=== PATIENT | male | born 1970 | race Caucasian/White ===

== ENCOUNTER 2017-12-08 12:08 | Emergency (ER) | payer OTHER ==
[~2017-12-08] VITALS: Ht 167.6 cm; Wt 69.4 kg
[~2017-12-08 12:08] MED LIST: AUGMENTIN 875-1 EACH PO; AUGMENTIN 875875 MG PO; BENZONATATE200 M1 PO; CENTRUM1 TA1 PO; NASONEX17 GM NASB; ZOFRAN ODT4 M1 PO; ZOFRAN4 M1 PO
--- NOTE | 2017-12-08 14:50 | ED GENERAL ADULT ---
History of Present Illness General Chief Complaint: Fall Stated Complaint: "I BROKE A BUNCH OF RIBS, I FELL" Source: patient Exam Limitations: no limitations Vital Signs & Intake/Output Vital Signs & Intake/Output Vital Signs Date Time Temp Pulse Resp B/P B/P Pulse O2 O2 Flow FiO2 Mean Ox Delivery Rate 12/08 1720 98.6 73 18 140/83 96 Room Air 12/08 1330 99.0 74 12 138/88 94 Room Air Allergies Coded Allergies: NO KNOWN ALLERGIES (UNKNOWN 08/07/17) Reconcile Medications Ibuprofen 800 MG TABLET 1 TAB PO TID PRN PAIN Oxycodone HCl/Acetaminophen (Percocet 5-325 MG Tablet) 5 MG-325 MG TABLET 1 TAB PO 4 TIMES/DAY PRN SEVERE PAIN Triage Note: PT FALL DOWN FLIGHT OF STAIRS, "I FEEL LIKE I BROKE MY RIBS" HAVING TROUBLE BREATHING. FELL OF A SCAFOLING. 06/05 PT ALSO C/O BACK PAIN PT STATES IT IS MORE COMFORTABLE FOR ME TO STAND Triage Nurses Notes Reviewed? yes Onset: Abrupt Duration: hour(s): (1), constant, continues in ED, getting worse Timing: single episode today Injury Environment: home Severity: moderate, severe Severity Numbers: 10 No Modifying Factors: none HPI: 47-year-old male past medical history of alcohol dependence presents for evaluation after a fall. Patient was at his house working on a scaffold when he tripped and fell about 4 feet landing on his left flank. He reports pain in his left ribs. The pain is worse with movement touching the area or breathing. The pain radiates to his back. He did not take any medicine for the pain. He rates pain as a 10 out of 10. He denies any head strike or loss of consciousness. He is able to get up and walk after the fall. He denies any pain in his extremities chest pain shortness of breath or abdominal pain. No blood thinners. Past History Travel History Traveled to [place] past 21 day No Medical History Any Pertinent Medical History? see below for history Neurological: NONE EENT: NONE Cardiovascular: NONE Respiratory: NONE Gastrointestinal: GERD, DIVERTICULOSIS Hepatic: NONE Renal: one kidney incidentally seen on CT today Musculoskeletal: HAS AN EXTRA RIB Psychiatric: alcohol dependence Endocrine: NONE Blood Disorders: NONE Cancer(s): NONE HOSTESS/Reproductive: NONE Other Medical Hx: cigarette smoker History of MRSA: No History of VRE: No History of CDIFF: No Surgical History Surgical History: NONE Psychosocial History Who do you live with Significant Other Services at Home None What is your primary language Vietnamese Tobacco Use: Current Daily Use Daily Tobacco Use Amount/Type: => 5 Cigarettes daily Family History Family History, If Any: MOTHER, , Age 60+; Cause: Primary cancer of unknown site and cell type. FATHER, , Age 60+; Cause: Cancer of unknown origin. Relation not specified for: *No pertinent family history Hx Contributory? No Review of Systems Review of Systems Constitutional: Reports: no symptoms. EENTM: Reports: no symptoms. Respiratory: Reports: no symptoms. Cardiovascular: Reports: no symptoms. GI: Reports: no symptoms. Genitourinary: Reports: no symptoms. Musculoskeletal: Reports: see HPI, back pain, muscle pain, muscle stiffness. Skin: Reports: no symptoms. Neurological/Psychological: Reports: no symptoms. Hematologic/Endocrine: Reports: no symptoms. Immunologic/Allergic: Reports: no symptoms. All Other Systems: Reviewed and Negative Physical Exam Physical Exam General Appearance: well developed/nourished, no apparent distress, alert, awake Head: atraumatic, normal appearance Eyes: Bilateral: normal appearance, PERRL, EOMI. Ears, Nose, Throat: normal pharynx, normal ENT inspection, hearing grossly normal Neck: normal inspection, supple, full range of motion Respiratory: normal breath sounds, no respiratory distress, lungs clear, left lateral ribs from the eighth 12 are tender to palpation with superficial abrasions on the left flank and left lateral ribs Cardiovascular: regular rate/rhythm, normal peripheral pulses Peripheral Pulses: 2+ radial (R), 2+ radial (L) Gastrointestinal: normal bowel sounds, soft, no organomegaly, tenderness (left upper quadrant) Back: normal inspection, normal range of motion, no vertebral tenderness Extremities: normal inspection, normal range of motion, no edema Neurologic/Psych: no motor/sensory deficits, awake, alert, oriented x 3, normal gait Skin: intact, normal color, warm/dry, superficial abrasions to the bilateral forearms bilateral knees Lymphatic: no anterior cervical jose Core Measures ACS in differential dx? No CVA/TIA Diagnosis: No Sepsis Present: No Sepsis Focused Exam Completed? No Progress Differential Diagnoses I considered the following diagnoses in my evaluation of the patient: [Rib fractures, pulmonary contusion, splenic laceration, liver laceration, vertebral fracture, contusion, abrasion] Plan of Care: Orders Procedure Date/time Status CT CHEST W IV CONTRAST 12/[address] ABD & PELVIS W IV CONTRAST 12/08 1326 Active Current Medications Sig/Eric Start time Last Medication Dose Stop Time Status Admin Oxycodone/ 1 TAB ONCE ONE 12/08 1615 UNVr Acetaminophen 12/08 1616 (Percocet) Patient seen and evaluated. He is reporting severe left rib/flank/left upper quadrant pain after a fall. He denies any head strike no blood thinners. A CT scan of the head neck chest abdomen and pelvis was obtained. We'll check CT scans with contrast to get a better view of the spleen. Patient medicated with morphine initially and then dilaudid with some improvement. CT scan show evidence of left 10 11 and 12th rib fractures. No pulmonary contusion. No hypoxia. No underlying lung disease. No other acute trauma. Reviewed results with patient. Patient is feeling somewhat better. He was able to get up and ambulate in the emergency department. He'll be given an incentive spirometer Percocet ibuprofen for pain control. Rest apply ice avoid excessive physical activity follow-up with a primary care doctor in a few days for recheck. Discussed return precautions in detail. Patient agrees the plan. Case discussed with Dr. Kan he agrees. Diagnostic Imaging: Viewed by Me: CT Scan. Discussed w/RAD: CT Scan. Radiology Impression: PATIENT: VALDEZ VERAS PRESENT AGE: 47 PATIENT ACCOUNT NO: [id number] : 70 LOCATION: [facility] ORDERING PHYSICIAN: Duarte KRISHNAMURTHY SERVICE DATE: 12/08/17 EXAM TYPE: CAT - CT CERV SPINE WO IV CONTRAST; CT HEAD WO IV CONTRAST EXAMINATION: CT HEAD WITHOUT CONTRAST CT CERVICAL SPINE WITHOUT CONTRAST CLINICAL INFORMATION: Trauma. Fell downstairs. COMPARISON: None. TECHNIQUE: Imaging was performed from the skull base to vertex without intravenous administration of contrast. In addition, helical noncontrast CT imaging was acquired through the cervical spine and source images were reviewed along with axial reconstructions and sagittal and coronal MPRs. DLP: 1005.04 mGy-cm FINDINGS: HEAD: No intracranial mass, hemorrhage, or midline shift is visualized. The ventricles and sulci are age- appropriate. No extra-axial collections are identified. The paranasal sinuses and mastoid air cells are well aerated. CERVICAL SPINE: There is no evidence of acute cervical spine fracture. Vertebral bodies remain normal in height. Cervical vertebrae have normal alignment. There is mild disc height narrowing with posterior endplate spurs at C6-C7 disc level. No pre- or paravertebral soft tissue abnormality is identified. Limited assessment of the lung apices is unremarkable. IMPRESSION: 1. No acute intracranial pathology. 2. No CT evidence of acute cervical spine fracture or traumatic subluxation DICTATED BY: Jimy Yanez MD DATE/TIME DICTATED:12/08/171524 CAMPUS ADMINISTRATIVE ASSISTANT:JASIEL DATE/TIME TRANSCRIBED:12/08/171524 CONFIDENTIAL, DO NOT COPY WITHOUT APPROPRIATE AUTHORIZATION. <Electronically signed in Other Vendor System> SIGNED BY: Jimy Yanez MD 12/08/171534, PATIENT: VALDEZ VERAS PRESENT AGE: 47 PATIENT ACCOUNT NO: [id number] : 70 LOCATION: [facility] ORDERING PHYSICIAN: Duarte KRISHNAMURTHY SERVICE DATE: 12/08/17 EXAM TYPE: CAT - CT ABD & PELVIS W IV CONTRAST; CT CHEST W IV CONTRAST EXAMINATION: CT CHEST, ABDOMEN AND PELVIS WITH CONTRAST CLINICAL INFORMATION: Fell downstairs. COMPARISON: CT abdomen and pelvis 08/07/2017, 02/24/2015. TECHNIQUE: Multidetector volumetric CT imaging of the chest, abdomen and pelvis was obtained after the administration of 95 mL of intravenous Optiray 320 without immediate adverse reactions. Coronal and sagittal reformatted images are performed at the CT scanner. DLP: 405.15 mGy-cm. FINDINGS: CT CHEST: Lungs: There is ground-glass opacity in the subpleural lung at the right lung base, could be related to atelectasis. There is a small amount of mucus in the trachea at the todd and the right mainstem bronchus. Mediastinum: The mediastinum is normal. Pleura: There is no pleural effusion. No pleural mass or thickening. Axilla: No lymphadenopathy. CT ABDOMEN AND PELVIS: Liver, Gallbladder, and Biliary Tree: There is a 1 cm mildly enhancing nodule at the inferior tip of the right lobe of the liver, axial image 62 (2). This is unchanged since CAT scan . There is a 2 mm hypodensity at the dome right lobe of liver image 336 (4), and there is a 5 mm hypodensity at the anterior right lobe of liver sagittal image 76. Both of these hypodense lesions are unchanged since CAT scan of 02/24/2015. There is no intrahepatic bile duct dilatation. There are 2 separate punctate calcifications associated with the wall of the gallbladder unchanged since prior CAT scan 08/07/2017. No gallbladder wall thickening or edema around the gallbladder. There is no bile duct dilatation. Pancreas: No acute change of the pancreas. No mass. No pancreatic duct dilatation. Spleen: Spleen normal in size and contour. No focal lesion. Adrenal Glands: Adrenal glands are normal in size. No focal mass. Kidneys and Ureters: The left kidney is absent. Right kidney is normal with no evidence of hydronephrosis. Bladder: Unremarkable. Gastrointestinal Tract: There is diverticulosis of colon. There is no acute change of the bowel. No bowel obstruction. No bowel wall thickening or edema. Moderate volume of stool in the colon. The appendix is normal. The small- bowel loops are normal. Mesentery: No focal inflammation. No free fluid. No free air. Abdominal Wall: No significant hernia is appreciated. Lymph Nodes: Normal. Vascular: Unremarkable. Pelvic Viscera: Prostate is prominent measuring 5 cm transverse. There are coarse calcifications within the prostate. Osseous Structures: There is fracture of the posterior left 12th, 11th and 10th ribs. There is mild degenerative lipping at the anterior endplates of the lower thoracic, upper lumbar vertebrae and mild degenerative change of the facet joints of the lower lumbar spine from degenerative disc disease. IMPRESSION: 1. Fracture of the posterior 10th through 12th left ribs. No pneumothorax or acute change of lung. Normal spleen. 2. Ground-glass opacity subpleural lung at the right lung base likely dependent atelectasis. 3. Two tiny punctate calcifications associated with the wall of the gallbladder unchanged since prior CT study. No edema of the gallbladder wall or bile duct dilatation. 4. There are several lesions in the liver. These are all stable since CAT scan 02/24/2015 consistent with benign finding. 5. Absent left kidney. Normal right kidney. 6. Mild diverticulosis of colon without acute change of the bowel. 7. Enlarged prostate with coarse calcifications in the prostate. DICTATED BY: Jimy Yanez MD DATE/TIME DICTATED:04/14/18 / 1532 CAMPUS ADMINISTRATIVE ASSISTANT:JASIEL DATE/TIME TRANSCRIBED:12/08/17 / 1532 CONFIDENTIAL, DO NOT COPY WITHOUT APPROPRIATE AUTHORIZATION. <Electronically signed in Other Vendor System> SIGNED BY: Jimy Yanez MD 12/08/17 1636 Initial ED EKG: none Departure Departure Disposition: HOME OR SELF CARE Condition: Stable Clinical Impression Primary Impression: Rib fractures Qualifiers: Encounter type: initial encounter Rib fracture type: multiple ribs Fracture type: closed Laterality: left Qualified Code: S22.42XA - Multiple fractures of ribs, left side, initial encounter for closed fracture Referrals: Keny Anthony MD (PCP/Family) Additional Instructions: Rest, avoid heavy lifting bending or physical activity. Apply ice for 15-20 minutes every few hours. Use ibuprofen 800 mg every 8 hours with food as needed for pain. Percocet for severe pain. This may cause drowsiness. Make a follow- up appointment with a primary care doctor for a recheck in a few days. Monitor symptoms closely return with fever worsening pain coughing up blood or any other concerns. Departure Forms: Customer Survey General Discharge Information Prescriptions: Current Visit Scripts Ibuprofen 1 TAB PO TID PRN PAIN #30 TAB Oxycodone HCl/Acetaminophen (Percocet 5-325 MG Tablet) 1 TAB PO 4 TIMES/DAY PRN SEVERE PAIN #20 TAB Critical Care Note Critical Care Note Critical Care Time: non-applicable
--- NOTE | 2017-12-08 15:35 | CT SCAN REPORT ---
EXAMINATION: CT HEAD WITHOUT CONTRAST CT CERVICAL SPINE WITHOUT CONTRAST CLINICAL INFORMATION: Trauma. Fell downstairs. COMPARISON: None. TECHNIQUE: Imaging was performed from the skull base to vertex without intravenous administration of contrast. In addition, helical noncontrast CT imaging was acquired through the cervical spine and source images were reviewed along with axial reconstructions and sagittal and coronal MPRs. DLP: 1005.04 mGy-cm FINDINGS: HEAD: No intracranial mass, hemorrhage, or midline shift is visualized. The ventricles and sulci are age-appropriate. No extra-axial collections are identified. The paranasal sinuses and mastoid air cells are well aerated. CERVICAL SPINE: There is no evidence of acute cervical spine fracture. Vertebral bodies remain normal in height. Cervical vertebrae have normal alignment. There is mild disc height narrowing with posterior endplate spurs at C6-C7 disc level. No pre- or paravertebral soft tissue abnormality is identified. Limited assessment of the lung apices is unremarkable. IMPRESSION: 1. No acute intracranial pathology. 2. No CT evidence of acute cervical spine fracture or traumatic subluxation
--- NOTE | 2017-12-08 16:36 | CT SCAN REPORT ---
EXAMINATION: CT CHEST, ABDOMEN AND PELVIS WITH CONTRAST CLINICAL INFORMATION: Fell downstairs. COMPARISON: CT abdomen and pelvis 08/07/2017, 02/24/2015. TECHNIQUE: Multidetector volumetric CT imaging of the chest, abdomen and pelvis was obtained after the administration of 95 mL of intravenous Optiray 320 without immediate adverse reactions. Coronal and sagittal reformatted images are performed at the CT scanner. DLP: 405.15 mGy-cm. FINDINGS: CT CHEST: Lungs: There is ground-glass opacity in the subpleural lung at the right lung base, could be related to atelectasis. There is a small amount of mucus in the trachea at the todd and the right mainstem bronchus. Mediastinum: The mediastinum is normal. Pleura: There is no pleural effusion. No pleural mass or thickening. Axilla: No lymphadenopathy. CT ABDOMEN AND PELVIS: Liver, Gallbladder, and Biliary Tree: There is a 1 cm mildly enhancing nodule at the inferior tip of the right lobe of the liver, axial image 62 (2). This is unchanged since CAT scan 02/24/2015. There is a 2 mm hypodensity at the dome right lobe of liver image 336 (4), and there is a 5 mm hypodensity at the anterior right lobe of liver sagittal image 76. Both of these hypodense lesions are unchanged since CAT scan of 02/24/2015. There is no intrahepatic bile duct dilatation. There are 2 separate punctate calcifications associated with the wall of the gallbladder unchanged since prior CAT scan 08/07/2017. No gallbladder wall thickening or edema around the gallbladder. There is no bile duct dilatation. Pancreas: No acute change of the pancreas. No mass. No pancreatic duct dilatation. Spleen: Spleen normal in size and contour. No focal lesion. Adrenal Glands: Adrenal glands are normal in size. No focal mass. Kidneys and Ureters: The left kidney is absent. Right kidney is normal with no evidence of hydronephrosis. Bladder: Unremarkable. Gastrointestinal Tract: There is diverticulosis of colon. There is no acute change of the bowel. No bowel obstruction. No bowel wall thickening or edema. Moderate volume of stool in the colon. The appendix is normal. The small-bowel loops are normal. Mesentery: No focal inflammation. No free fluid. No free air. Abdominal Wall: No significant hernia is appreciated. Lymph Nodes: Normal. Vascular: Unremarkable. Pelvic Viscera: Prostate is prominent measuring 5 cm transverse. There are coarse calcifications within the prostate. Osseous Structures: There is fracture of the posterior left 12th, 11th and 10th ribs. There is mild degenerative lipping at the anterior endplates of the lower thoracic, upper lumbar vertebrae and mild degenerative change of the facet joints of the lower lumbar spine from degenerative disc disease. IMPRESSION: 1. Fracture of the posterior 10th through 12th left ribs. No pneumothorax or acute change of lung. Normal spleen. 2. Ground-glass opacity subpleural lung at the right lung base likely dependent atelectasis. 3. Two tiny punctate calcifications associated with the wall of the gallbladder unchanged since prior CT study. No edema of the gallbladder wall or bile duct dilatation. 4. There are several lesions in the liver. These are all stable since CAT scan 02/24/2015 consistent with benign finding. 5. Absent left kidney. Normal right kidney. 6. Mild diverticulosis of colon without acute change of the bowel. 7. Enlarged prostate with coarse calcifications in the prostate.
[2017-12-08] MEDS ORDERED: PERCOCET 5-3251 EACH PO (17:13)
[2017-12-08] MEDS ORDERED: IBUPROFEN800 M1 PO (17:13)
[2017-12-08 17:20] VITALS: BP 140/83
== END 2017-12-08 17:23 ==
LOC: ERH 12:08
DX: S22.42XA Multiple fractures of ribs, left side, initial encounter for closed fracture (principal); W12.XXXA Fall on and from scaffolding, initial encounter; Y92.009 Unspecified place in unspecified non-institutional (private) residence as the place of occurrence of the external cause; Y93.9 Activity, unspecified
CPT/HCPCS: 74177; 96374; 96375